=== PATIENT | male | born 1965 | race Caucasian/White ===

== ENCOUNTER 2020-03-18 14:31 | Emergency (ER) | payer OTHER ==
[~2020-03-18] VITALS: Ht 182.9 cm; Wt 90.7 kg
[2020-03-18] MEDS ORDERED: [UNRECOGNIZED DRUG - OTHER] (14:42)
[2020-03-18 15:04] LABS: ABSOLUTE EOSINOPHILS 0.3 thou/uL (0.0-0.7); ABSOLUTE LYMPHOCYTES 1.7 thou/uL (0.8-5.3); ABSOLUTE MONOCYTES 1.1 thou/uL (0.0-1.2); BASOPHILS 0.4 %; EOSINOPHILS 3.3 %; HEMATOCRIT 50.5 % (42.0-52.0); HEMOGLOBIN 17.6 gm/dL (14.0-18.0); LYMPHOCYTES 16.9 %; MCH 30.9 pg (26.0-34.0); MCHC 34.8 g/dL (28.0-37.0); MONOCYTES 10.7 %; MPV 7.2 fl. (7.2-11.1); NUCLEATED RBCS 0 /100WBC; PLATELET COUNT* 339 thou/uL (150-400); POLYS 68.7 %; RBC 5.68 mil/uL (4.50-6.00); RDW-CV 13.6 % (10.5-14.5); WBC 10.1 thou/uL (4.0-11.0)
[2020-03-18 15:13] LABS: APTT 28.2 Seconds (25.0-31.3); PROTIME 9.9 Seconds (9.20-11.50)
[2020-03-18 15:14] LABS: CALCIUM 8.4 mg/dL (8.5-10.1); CREATININE 1.3 mg/dL (0.6-1.3); POTASSIUM 4.1 mmol/L (3.5-5.1)
[2020-03-18 15:24] LABS: ALBUMIN 3.8 g/dL (3.4-5.0); MAGNESIUM 1.9 mg/dL (1.8-2.4); TOTAL BILIRUBIN 0.6 mg/dL (<0.1-1.0); TOTAL PROTEIN 7.3 g/dL (6.4-8.2)
[2020-03-18] MEDS ORDERED: PROTONIX40 M1 PO (16:49)
[2020-03-18 17:15] VITALS: BP 127/91
--- NOTE | 2020-03-19 10:40 | EKG ---
[place] [address] ELECTROCARDIOGRAM REPORT Name: MITCHEL PIEDRA Room: [facility]#: [id number] Admission: 03/18/20 Attend Phys: Discharge: 03/18/20 Date of : 67 Date of Service: 03/18/20 1434 Report #: [id number] THIS REPORT FOR: //name// [facility] ED Test Date: 2020-03-18 Test Time: 14:34:37 Pat Name: MITCHEL PIEDRA Department: Room: Gender: Irrigator: : 1965 Requested By: Raji Espinoza Order Number: [id number] MD: Ajay Whitney Measurements Intervals [place] Rate: 83 P: 28 NH: 46 QRS: 61 QRSD: 96 T: 29 QT: 327 QTc: 385 Interpretive Statements Sinus rhythm Short [place] interval RSR' in V1 or V2, probably normal variant Baseline wander in lead(s) V2 No previous ECG available for comparison Electronically Signed On 03-19-2020 10:38:25 CDT by Ajay Whitney [email or web address] <ELECTRONICALLY SIGNED> By: Ajay Whitney MD, FACC 03/19/20 1038 1434 1434 Ajay Whitney MD, FAC /EPI
== END 2020-03-18 17:15 | disposition home or self-care (01) ==
LOC: M.ERS 14:31
PROVIDERS: Emergency Medicine Emergency Medical Services
DX: R07.89 Other chest pain (principal)